=== PATIENT | female | born 1990 | race Caucasian/White ===

== ENCOUNTER 2018-12-02 14:13 | Observation (INO) | payer SELFPAY ==
[2018-12-02] MEDS ORDERED: Lactated Ringers 1,000 ML IV ONE (14:18)
[2018-12-02] MEDS ORDERED: Ondansetron 4 MG/2 ML SDV IVPUSH ONE (14:18)
[2018-12-02] MEDS ORDERED: Sodium Chloride 0.9% 10 ML Syringe FLUSH PRN (14:18)
--- NOTE | 2018-12-02 14:23 | EDM.PDOC ---
ED HPI GENERAL MEDICAL PROBLEM - General Stated Complaint: ALLERGIC REACTION Time Seen by Provider: 12/02/18 14:15 Source of Information: Reports: Patient, RN Notes Reviewed History Limitations: Reports: No Limitations - History of Present Illness INITIAL COMMENTS - FREE TEXT/NARRATIVE: 28-year-old female presents emergency department today complaint of nausea vomiting and diarrhea. She admits she took 17 pills of mushroom base given her by her chiropractor approximately 2 hours prior she admits she's not sure why she is taking these tablets and is unsure of what is being treated. - Related Data Allergies Allergy/AdvReac Type Severity Reaction Status Date / Time amoxicillin Allergy Hives Verified 12/02/18 15:16 Home Meds: Home Meds NK [No Known Home Meds] 12/02/18 [History] Past Medical History - Past Health History Medical/Surgical History: Denies Medical/Surgical History Social & Family History - Tobacco Use Smoking Status *Q: Never Smoker ED ROS GENERAL - Review of Systems Review Of Systems: See Below Constitutional: Reports: No Symptoms Respiratory: Reports: No Symptoms Cardiovascular: Reports: No Symptoms GI/Abdominal: Reports: Abdominal Pain, Diarrhea, Nausea, Vomiting ED EXAM, GENERAL - Physical Exam Exam: See Below Exam Limited By: No Limitations General Appearance: Alert, Mild Distress Respiratory/Chest: No Respiratory Distress, Lungs Clear, Normal Breath Sounds, No Accessory Muscle Use, Chest Non-Tender Cardiovascular: Regular Rate, Rhythm, No Murmur GI/Abdominal: Soft, Non-Tender Course - Vital Signs Last Recorded V/S: Last Vital Signs Temp 97.0 F 12/02/18 14:15 Pulse 71 12/02/18 17:52 Resp 16 12/02/18 14:15 BP 93/48 L 12/02/18 17:52 Pulse Ox 95 12/02/18 17:52 - Orders/Labs/Meds Orders: Active Orders 24 hr Category Date Time Status Peripheral IV Care [RC] . DIRECTED Care 12/02/18 14:18 Active Sodium Chloride 0.9% [Saline Flush] Med 12/02/18 14:18 Active 10 ml FLUSH ASDIRECTED PRN Peripheral IV Insertion Adult [OM.PC] Urgent Oth 12/02/18 14:18 Ordered Medication Orders Sodium Chloride (Saline Flush) 10 ml FLUSH ASDIRECTED PRN PRN Reason: Keep Vein Open Last Admin: 12/02/18 15:38 Dose: 10 ml Labs: Laboratory Tests 12/02/18 12/02/18 12/02/18 Range/Units 14:24 14:24 14:24 WBC 7.2 (4.5-11.0) K/uL RBC 4.61 (3.30-5.50) M/uL Hgb 13.3 (12.0-15.0) g/dL Hct 39.7 (36.0-48.0) % MCV 86 (80-98) fL MCH 29 (27-31) pg MCHC 34 (32-36) % Plt Count 238 (150-400) K/uL Neut % (Auto) 68 H (36-66) % Lymph % (Auto) 24 (24-44) % [place] % (Auto) 7 H (2-6) % Eos % (Auto) 1 L (2-4) % Baso % (Auto) 0 (0-1) % Sodium 139 L (140-148) mmol/L Potassium 3.9 (3.6-5.2) mmol/L Chloride 101 (100-108) mmol/L Carbon Dioxide 30 (21-32) mmol/L Anion Gap 11.9 (5.0-14.0) mmol/L BUN 10 (7-18) mg/dL Creatinine 0.7 (0.6-1.0) mg/dL Est Cr Clr Drug Dosing 97.65 mL/min Estimated GFR (MDRD) > 60 (>60) Glucose 107 H (74-106) mg/dL Lactic Acid 2.1 H (0.4-2.0) mmol/L Calcium 9.3 (8.5-10.1) mg/dL Total Bilirubin 0.3 (0.2-1.0) mg/dL AST 16 (15-37) U/L ALT 15 (12-78) U/L Alkaline Phosphatase 39 L (46-116) U/L Total Protein 7.9 (6.4-8.2) g/dL Albumin 4.4 (3.4-5.0) g/dL Globulin 3.5 (2.3-3.5) g/dL Albumin/Globulin Ratio 1.3 (1.2-2.2) Meds: Medications Generic Name Dose Route Start Last Admin Trade Name Freq PRN Reason Stop Dose Admin Sodium Chloride 10 ml 12/02/18 14:18 12/02/18 15:38 Saline Flush FLUSH 10 ml ASDIRECTED PRN Administration Keep Vein Open Discontinued Medications Generic Name Dose Route Start Last Admin Trade Name Leonidas PRN Reason Stop Dose Admin Lactated Ringer's 1,000 mls @ 999 mls/hr 12/02/18 14:18 12/02/18 14:34 Ringers, Lactated IV 12/02/18 15:18 999 mls/hr BOLUS ONE Administration Lorazepam 1 mg 12/02/18 15:28 12/02/18 15:38 Ativan IVPUSH 12/02/18 15:29 1 mg ONETIME ONE Administration Ondansetron HCl 4 mg 12/02/18 14:18 12/02/18 14:34 Zofran IVPUSH 12/02/18 14:19 4 mg ONETIME ONE Administration - Re-Assessments/Exams Free Text/Narrative Re-Assessment/Exam: 12/02/18 17:53 Nursing staff was able to contact the chiropractor who prescribed this medication he was able to tell us it is Ceriva however he would not reveal why he was treating the patient he did reveal that he did prescribe 17 tablets to be taken once but he did not reveal why he chose such a dose. Reviewing the medical information on clinical pharmacology this medication is used for memory and cognitive issues recommendations are no more than 2 tablets per day. Also discussing with the patient she is not aware of why she was taking the tablets or is unwilling to reveal the reason why she was taking the tablets. Departure - Departure Time of Disposition: 17:57 Disposition: Admitted As Inpatient 65 Condition: Fair Clinical Impression: Nausea & vomiting Qualifiers: Vomiting type: unspecified Vomiting Intractability: intractable Qualified Code( s): R11.2 - Nausea with vomiting, unspecified - Discharge Information - My Orders Last 24 Hours: My Active Orders 12/02/18 14:18 Peripheral IV Care [RC] . DIRECTED Sodium Chloride 0.9% [Saline Flush] 10 ml FLUSH ASDIRECTED PRN Peripheral IV Insertion Adult [OM.PC] Urgent - Assessment/Plan Last 24 Hours: My Active Orders 12/02/18 14:18 Peripheral IV Care [RC] . DIRECTED Sodium Chloride 0.9% [Saline Flush] 10 ml FLUSH ASDIRECTED PRN Peripheral IV Insertion Adult [OM.PC] Urgent Plan: Assessment Acuity = acute Site and laterality = intentional drug overdose of Ceriva dietary supplement Etiology = intentional ingestion Manifestations = nausea, vomiting, diarrhea, dizziness hypotension Location of injury = Home Lab values = CBC, CMP unremarkable Plan Called discussed case with hospitalist at 1750 he kindly agreed to come and evaluate the patient in the emergency department for admission This note was dictated using [employer] voice recognition software please call with any questions on syntax or grammar.
[2018-12-02] MEDS ORDERED: LORazepam 2 MG/ML SDV IVPUSH ONE (15:28)
--- NOTE | 2018-12-02 18:19 | PCM.HP.2 ---
H&P History of Present Illness - General Date of Service: 12/02/18 Admit Problem/Dx: Admission Diagnosis/Problem Admission Diagnosis/Problem Adverse reaction to drug Source of Information: Patient, Provider History Limitations: Reports: No Limitations - History of Present Illness Initial Comments - Free Text/Narative: CC: I felt like I was dying HPI: Lilian presents to the emergency room today with acute onset of nausea with vomiting as well as diarrhea, dizziness, blurry vision and generalized muscle spasms. She felt well this morning but came to visit a chiropractor for an unspecified reason. She was given a medication called Ceriva and instructed to take 17 tablets at once with the usual maximum dose being 2 tablets. About 15 minutes after taking the medications she had acute onset of the symptoms mentioned above. She had multiple rounds of vomiting and nearly constant nausea for more than a couple of hours. Her vision remains blurry. She feels lightheaded but does not have the sensation of vertigo. No complaints of headache. She does not report abdominal pain except with her vomiting which she thinks is a muscle pain more than pain inside of her abdomen. She feels too weak to vomit at this time. She describes diffuse spasming of her muscles to the point that her mouth and difficulty opening though this has been improving. She has never taken the medication before. She's never felt like this before. She has not had any sick contacts. No fevers or chills. Workup in the emergency room has been unremarkable as far as laboratory testing. Patient continues to have significant symptoms. Poison control was contacted and they suggested supportive cares would be adequate in this medication should be cleared in a matter of 2-3 hours. She will be admitted for observation and symptom management. Abdomen Pain Score (Numeric/FACES): 6 - Related Data Allergies/Adverse Reactions: Allergies Allergy/AdvReac Type Severity Reaction Status Date / Time amoxicillin Allergy Hives Verified 12/02/18 15:16 Home Medications: Home Meds NK [No Known Home Meds] 12/02/18 [History] Past Medical History - Past Health History Medical/Surgical History: Denies Medical/Surgical History Social & Family History - Family History Cardiac: Denies: CAD - Tobacco Use Smoking Status *Q: Never Smoker - Alcohol Use Alcohol Use History: No - Recreational Drug Use Recreational Drug Use: No Drug Use in Last 12 Months: No H&P Review of Systems - Review of Systems: Review Of Systems: See Below Free Text/Narrative: A complete 12 point review of systems was obtained. Pertinent positives and negatives are noted in the history of present illness. All other systems were reviewed and were negative except as noted. Exam - Exam Exam: See Below - Vital Signs Vital Signs: Last Vital Signs Temp 36.1 C 12/02/18 14:15 Pulse 71 12/02/18 17:52 Resp 16 12/02/18 14:15 BP 93/48 L 12/02/18 17:52 Pulse Ox 95 12/02/18 17:52 Weight: 52.163 kg - Exam Quality Assessment: No: Supplemental Oxygen General: Alert, Oriented, Cooperative, Mild Distress HEENT: Conjunctiva Clear. No: Mucosa Moist & [place] (dry), Scleral Icterus Neck: Supple, Trachea Midline. No: Lymphadenopathy Lungs: Clear to Auscultation, Normal Respiratory Effort Cardiovascular: Regular Rate, Regular Rhythm GI/Abdominal Exam: Normal Bowel Sounds, Soft, Non-Tender, No Distention Extremities: No Pedal Edema. No: Increased Warmth Skin: Warm, Dry Neuro Extensive - Mental Status: Alert, Oriented x3, Nl Response to Commands Neuro Extensive - Motor, Sensory, Reflexes: No: Dysarthria, Abnormal Motor, Tremor Psychiatric: Alert, Normal Affect - Patient Data Lab Results Last 24 hrs: Laboratory Results - last 24 hr 12/02/18 12/02/18 12/02/18 Range/Units 14:24 14:24 14:24 WBC 7.2 (4.5-11.0) K/uL RBC 4.61 (3.30-5.50) M/uL Hgb 13.3 (12.0-15.0) g/dL Hct 39.7 (36.0-48.0) % MCV 86 (80-98) fL MCH 29 (27-31) pg MCHC 34 (32-36) % Plt Count 238 (150-400) K/uL Neut % (Auto) 68 H (36-66) % Lymph % (Auto) 24 (24-44) % [place] % (Auto) 7 H (2-6) % Eos % (Auto) 1 L (2-4) % Baso % (Auto) 0 (0-1) % Sodium 139 L (140-148) mmol/L Potassium 3.9 (3.6-5.2) mmol/L Chloride 101 (100-108) mmol/L Carbon Dioxide 30 (21-32) mmol/L Anion Gap 11.9 (5.0-14.0) mmol/L BUN 10 (7-18) mg/dL Creatinine 0.7 (0.6-1.0) mg/dL Est Cr Clr Drug Dosing 97.65 mL/min Estimated GFR (MDRD) > 60 (>60) Glucose 107 H (74-106) mg/dL Lactic Acid 2.1 H (0.4-2.0) mmol/L Calcium 9.3 (8.5-10.1) mg/dL Total Bilirubin 0.3 (0.2-1.0) mg/dL AST 16 (15-37) U/L ALT 15 (12-78) U/L Alkaline Phosphatase 39 L (46-116) U/L Total Protein 7.9 (6.4-8.2) g/dL Albumin 4.4 (3.4-5.0) g/dL Globulin 3.5 (2.3-3.5) g/dL Albumin/Globulin Ratio 1.3 (1.2-2.2) Result Diagrams: 12/02/18 14:24 12/02/18 14:24 *Q Meaningful Use (ADM) - VTE Risk Assess *Q Each Risk Factor Represents 1 Point: None Total Score 1 Point Risk Factors: 0 Each Risk Factor Represents 2 Points: None Total Score 2 Point Risk Factors: 0 Each Risk Factor Represents 3 Points: None Total Score 3 Point Risk Factors: 0 Each Risk Factor Represents 5 Points: None Total Score 5 Point Risk Factors: 0 Venous Thromboembolism Risk Factor Score *Q: 0 - Problem List (1) Adverse reaction to drug SNOMED Code(s): 20783016 ICD Code: T50.905A - ADVERSE EFFECT OF UNSP DRUG/MEDS/BIOL SUBST, INIT Status: Acute Current Visit: Yes Problem Details: Ceriva at higher than recommended dosing Qualifiers: Encounter type: initial encounter Qualified Code(s): T50.905A - Adverse effect of unspecified drugs, medicaments and biological substances, initial encounter (2) Nausea & vomiting SNOMED Code(s): 06935300 ICD Code: R11.2 - NAUSEA WITH VOMITING, UNSPECIFIED Status: Acute Current Visit: Yes Qualifiers: Vomiting type: unspecified Vomiting Intractability: intractable Qualified Code(s): R11.2 - Nausea with vomiting, unspecified (3) Tobacco dependence SNOMED Code(s): 68480928 ICD Code: F17.200 - NICOTINE DEPENDENCE, UNSPECIFIED, UNCOMPLICATED Status : Chronic Current Visit: Yes Problem List Initiated/Reviewed/Updated: Yes Orders Last 24hrs: Active Orders 24 hr Category Date Time Status Patient Status Manage Transfer [TRANSFER] Routine ADT 12/02/18 18:15 Ordered Peripheral IV Care [RC] . DIRECTED Care 12/02/18 14:18 Active Sodium Chloride 0.9% [Saline Flush] Med 12/02/18 14:18 Active 10 ml FLUSH ASDIRECTED PRN Peripheral IV Insertion Adult [OM.PC] Urgent Oth 12/02/18 14:18 Ordered Resuscitation Status Routine Resus Stat 12/02/18 18:16 Ordered Medication Orders Sodium Chloride (Saline Flush) 10 ml FLUSH ASDIRECTED PRN PRN Reason: Keep Vein Open Last Admin: 12/02/18 15:38 Dose: 10 ml Assessment/Plan Comment:: ASSESSMENT AND PLAN - Nausea with vomiting and diarrhea - additional symptoms include dizziness and generalized muscle spasms. Symptoms likely caused by her than the recommended dose of her herbal supplement provided at the chiropractor's office. Still having significant symptoms despite fluids and antinausea medications provided in the emergency room. She does not feel comfortable going home given the persistence and severity of her nausea and dizziness. Vitals are stable. -Ondansetron, lorazepam as needed for nausea -Gentle fluids overnight -Acetaminophen/ibuprofen as needed for pain Tobacco dependence Maintenance issues - - DVT prophylaxis - mechanical - GI prophylaxis - not indicated - Nutrition - start with clear liquids, advance as tolerated - [place] catheter - not indicated CODE STATUS - full code Admission justification - patient will be referred observation status for symptom management Disposition - I would anticipate discharge home after the hospital stay Primary care physician - no local primary care Hussain Alatorre M.D. - Mortality Measure Prognosis:: Good
[2018-12-02] MEDS ORDERED: Ondansetron 4 MG Tab.DIS PO PRN (18:59)
[2018-12-02] MEDS ORDERED: Ibuprofen 600 MG Tab PO PRN (18:59)
[2018-12-02] MEDS ORDERED: Ondansetron 4 MG/2 ML SDV IV PRN (18:59)
[2018-12-02] MEDS ORDERED: LORazepam 2 MG/ML SDV IVPUSH PRN (18:59)
[2018-12-02] MEDS ORDERED: Promethazine 12.5 MG in Sodium Chloride 0.9% 50 ML IV PRN (18:59)
[2018-12-02] MEDS ORDERED: Acetaminophen 325 MG Tab PO PRN (18:59)
[2018-12-02] MEDS: Sodium Chloride 0.9% 1,000 ML IV SCH (19:30)
[2018-12-03] MEDS: Sodium Chloride 0.9% 1,000 ML IV SCH (03:41)
--- NOTE | 2018-12-03 09:33 | PCM.DCSUM1 ---
Discharge Summary - Hospital Course Brief History: Healthy 28-year-old female who presented with nausea, vom higher than recommended doses of Ceriva. She was admitted for management of nausea, vomiting and diarrhea. Diagnosis: Stroke: No - Discharge Data Discharge Date: 12/03/18 Discharge Disposition: Home, Self-Care 01 Condition: Good - Referral to Home Health Primary Care Physician: PCP None - Discharge Diagnosis/Problem(s) (1) Adverse reaction to drug SNOMED Code(s): 13102744 ICD Code: T50.905A - ADVERSE EFFECT OF UNSP DRUG/MEDS/BIOL SUBST, INIT Status: Acute Current Visit: Yes Problem Details: Ceriva at higher than recommended dosing Qualifiers: Encounter type: initial encounter Qualified Code(s): T50.905A - Adverse effect of unspecified drugs, medicaments and biological substances, initial encounter (2) Nausea & vomiting SNOMED Code(s): 37460966 ICD Code: R11.2 - NAUSEA WITH VOMITING, UNSPECIFIED Status: Acute Current Visit: Yes Qualifiers: Vomiting type: unspecified Vomiting Intractability: intractable Qualified Code(s): R11.2 - Nausea with vomiting, unspecified (3) Tobacco dependence SNOMED Code(s): 32376063 ICD Code: F17.200 - NICOTINE DEPENDENCE, UNSPECIFIED, UNCOMPLICATED Status : Chronic Current Visit: Yes - Patient Summary/Data Hospital Course: Lilian presented to the emergency room short a dose of Ceriva higher than the recommended dose. She quickly developed nausea with vomiting, generalized muscle cramps, dizziness and blurry vision. workup in the emergency room revealed normal laboratory studies. She was very symptomatic with the nausea and vomiting and was admitted for observation. Overnight following admission, she received IV fluids and symptomatic management of her nausea. By the morning after admission she is feeling much better. She is not quite back to baseline. She still has mild dizziness. She has tolerated breakfast without nausea. She has not had any fevers. She feels well enough to go home at this time. She will be discharged to home with a small prescription for ondansetron. She will follow-up as needed if symptoms do not continue to get better. - Patient Instructions Diet: Regular Diet as Tolerated Activity: As Tolerated Showering/Bathing: May Shower Notify Provider of: Increased Pain, Nausea and/or Vomiting - Discharge Plan *PRESCRIPTION DRUG MONITORING PROGRAM REVIEWED*: Not Applicable *COPY OF PRESCRIPTION DRUG MONITORING REPORT IN PATIENT VERO: Not Applicable Prescriptions/Med Rec: Ondansetron [Zofran ODT] 4 mg PO Q6H PRN #10 tab.dis PRN Reason: Nausea Home Medications: Home Meds Ondansetron [Zofran ODT] 4 mg PO Q6H PRN #10 tab.dis 12/03/18 [Rx] Oxygen Therapy Mode: Room Air Patient Handouts: Nausea and Vomiting, Adult Referrals: PCP,None [Primary Care Provider] - (f/u as needed if symptoms do not continue to get better ) - Discharge Summary/Plan Comment DC Time >30 min.: No - Patient Data Vitals - Most Recent: Last Vital Signs Temp 36.2 C 12/03/18 07:22 Pulse 73 12/03/18 07:22 Resp 16 12/03/18 07:22 BP 92/49 L 12/03/18 07:22 Pulse Ox 96 12/03/18 07:22 Weight - Most Recent: 52.163 kg I&O - Last 24 hours: Intake & Output 12/02/18 12/03/18 12/03/18 22:59 06:59 14:59 Output Total 1000 Balance -1000 Lab Results - Last 24 hrs: Laboratory Results - last 24 hr 12/02/18 12/02/18 12/02/18 Range/Units 14:24 14:24 14:24 WBC 7.2 (4.5-11.0) K/uL RBC 4.61 (3.30-5.50) M/uL Hgb 13.3 (12.0-15.0) g/dL Hct 39.7 (36.0-48.0) % MCV 86 (80-98) fL MCH 29 (27-31) pg MCHC 34 (32-36) % Plt Count 238 (150-400) K/uL Neut % (Auto) 68 H (36-66) % Lymph % (Auto) 24 (24-44) % [place] % (Auto) 7 H (2-6) % Eos % (Auto) 1 L (2-4) % Baso % (Auto) 0 (0-1) % Sodium 139 L (140-148) mmol/L Potassium 3.9 (3.6-5.2) mmol/L Chloride 101 (100-108) mmol/L Carbon Dioxide 30 (21-32) mmol/L Anion Gap 11.9 (5.0-14.0) mmol/L BUN 10 (7-18) mg/dL Creatinine 0.7 (0.6-1.0) mg/dL Est Cr Clr Drug Dosing 97.65 mL/min Estimated GFR (MDRD) > 60 (>60) Glucose 107 H (74-106) mg/dL Lactic Acid 2.1 H (0.4-2.0) mmol/L Calcium 9.3 (8.5-10.1) mg/dL Total Bilirubin 0.3 (0.2-1.0) mg/dL AST 16 (15-37) U/L ALT 15 (12-78) U/L Alkaline Phosphatase 39 L (46-116) U/L Total Protein 7.9 (6.4-8.2) g/dL Albumin 4.4 (3.4-5.0) g/dL Globulin 3.5 (2.3-3.5) g/dL Albumin/Globulin Ratio 1.3 (1.2-2.2) Med Orders - Current: Current Medications Acetaminophen (Tylenol) 650 mg PO Q4H PRN PRN Reason: Pain (Mild 1-3)/fever Promethazine HCl 12.5 mg/ (Sodium Chloride) 50.5 mls @ 200 mls/hr IV Q6H PRN PRN Reason: Nausea/Vomiting Last Admin: 12/02/18 20:00 Dose: 200 mls/hr Sodium Chloride (Normal Saline) 1,000 mls @ 125 mls/hr IV ASDIRECTED [facility] Last Admin: 12/03/18 03:41 Dose: 125 mls/hr Ibuprofen (Motrin) 600 mg PO Q6H PRN PRN Reason: Pain/Fever Lorazepam (Ativan) 1 mg IVPUSH Q4H PRN PRN Reason: Nausea/Vomiting Ondansetron HCl (Zofran Odt) 4 mg PO Q6H PRN PRN Reason: Nausea able to take PO Last Admin: 12/03/18 08:05 Dose: 4 mg Ondansetron HCl (Zofran) 4 mg IV Q6H PRN PRN Reason: Nausea/Vomiting Sodium Chloride (Saline Flush) 10 ml FLUSH ASDIRECTED PRN PRN Reason: Keep Vein Open Last Admin: 12/02/18 15:38 Dose: 10 ml Discontinued Medications Lactated Ringer's (Ringers, Lactated) 1,000 mls @ 999 mls/hr IV BOLUS ONE Stop: 12/02/18 15:18 Last Admin: 12/02/18 14:34 Dose: 999 mls/hr Lorazepam (Ativan) 1 mg IVPUSH ONETIME ONE Stop: 12/02/18 15:29 Last Admin: 12/02/18 15:38 Dose: 1 mg Ondansetron HCl (Zofran) 4 mg IVPUSH ONETIME ONE Stop: 12/02/18 14:19 Last Admin: 12/02/18 14:34 Dose: 4 mg - Exam Quality Assessment: Denies: Supplemental Oxygen General: Reports: Alert, Oriented, Cooperative, No Acute Distress Lungs: Reports: Normal Respiratory Effort GI/Abdominal Exam: Soft, No Distention Extremities: No Pedal Edema
== END 2018-12-03 11:45 | disposition home or self-care (01) ==
LOC: JP.ED 14:13 → JP.MS 18:15
PROVIDERS: ADMIT Internal Medicine; ATTEND Internal Medicine
DX: T50.991A Poisoning by other drugs, medicaments and biological substances, accidental (unintentional), initial encounter (principal); R11.2 Nausea with vomiting, unspecified; K52.1 Toxic gastroenteritis and colitis; H53.8 Other visual disturbances; R42 Dizziness and giddiness; F17.200 Nicotine dependence, unspecified, uncomplicated; Z88.0 Allergy status to penicillin
CPT/HCPCS: 36415; 80053; 83605; 85025; 96361; 96374; 96375; 99284; A9270; J2060; J2405; J2550; J7030; J7050; J7120; 96365; G0378